=== PATIENT | female | born 2000 | race Two or more races ===

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

== ENCOUNTER → 2020-03-20 | Outpatient (CLI) | payer BC ==
--- NOTE | 2020-03-20 16:32 | RAD ---
CLINICAL HISTORY: , unsure of dates. COMPARISON: None available. TECHNIQUE: Limited transabdominal ultrasound of the uterus was performed. FINDINGS: There is a single live fetus in breech position. Cardiac activity is visualized and documented at a rate of 135 beats per minute. The placenta is posterior without placenta previa. The amniotic fluid is normal for gestational stage. 6 cm in length. Current measurements are: BPD - 4.38 cm = 19 weeks 2 days HC - 16.79 cm = 19 weeks 3 days AC - 14.88 cm =20 weeks 1 day FL - 3.12 cm = 19 weeks 5 days The gestational size based on todays measurements is 19 weeks 5 days. The estimated weight is 317+/- 47 gm. The estimated date of delivery is 08/09/2020. IMPRESSION: Single live intrauterine gestation with estimated gestational age of 19 weeks 5 days and an estimated date of delivery 08/09/2020. Electronically signed by: Kulwant Rincon MD (03/20/2020 4:29 PM) KEVIN
== END | disposition home or self-care (01) ==
LOC: US 14:32
PROVIDERS: ATTEND Family Medicine
DX: O32.1XX0 Maternal care for breech presentation, not applicable or unspecified (principal); Z3A.19 19 weeks gestation of pregnancy
CPT/HCPCS: 76805

== ENCOUNTER 2020-06-16 05:25 | Observation (INO) | payer BC ==
[2020-06-16] MEDS ORDERED: IV RINGERS,LACTATED 1000ML 1,000 ML IV SCH (05:32)
[2020-06-16 05:52] LABS: BILIRUBIN,URINE NEGATIVE (NEG); CLARITY,URINE CLEAR; COLOR,URINE YELLOW; NITRITE,URINE NEGATIVE (NEG); PROTEIN,URINE NEGATIVE (NEG-TRACE); UROBILINOGEN,URINE 0.2 mg/dL (0.2 mg/dL)
[2020-06-16 06:00] LABS: BACTERIA,URINE MODERATE /HPF (0-FEW); SQUAMOUS EPITHELIAL CELL,UR MANY /LPF
[2020-06-16 06:01] LABS: BARBITURATES NEG (NEG); BENZODIAZEPINES NEG (NEG); CANNABINOIDS NEG (NEG); COCAINE NEG (NEG); METHADONE NEG (NEG); OPIATES NEG (NEG); PHENCYCLIDINE NEG (NEG)
[2020-06-16 06:02] LABS: AMPHETAMINE/METHAMPHETAMINE NEG (NEG)
[2020-06-16 06:29] LABS: AMNIO PT POSITIVE
[2020-06-16] MEDS ORDERED: IV RINGERS,LACTATED 500ML 500 ML IV ONE (07:00)
[2020-06-16] MEDS ORDERED: AMPICILLIN SODIUM 2 GM in IV NORMAL SALINE 100ML 100 ML IV ONE (07:00)
[2020-06-16] MEDS ORDERED: BETAMET ACET&NA PHOS 30 MG/5 ML VIAL. IM ONE (07:00)
--- NOTE | 2020-06-16 08:11 | HP ---
ADMIT DATE: 06/16/2020 ADMISSION HISTORY AND PHYSICAL, DISCHARGE SUMMARY REASON FOR ADMISSION: Premature rupture of membranes. HISTORY OF PRESENT ILLNESS AND HOSPITAL COURSE: This patient is a 19-year-old / female admitted with abdominal pain and leakage of fluid to Labor and Delivery Department at 32 weeks and 2 days. She had risks of previous STD status post treatment, obstructive sleep apnea and major depression under control. She states that she had noticed some possible leakage approximately 3 days ago, but had a more significant leakage the day of admission. She had evaluation by nursing staff on Labor and Delivery, had an equivocal Nitrazine, but a positive AmniSure. Nursing reported variable decels on the strip with minimal or no contractions. At this point, recommendations for transfer to [facility] for evaluation and treatment due to need for possible level 3 nursery was done. This was accomplished transferring care to Dr. Pride. Ambulance transfer was initiated. The patient was stable. Steroids and antibiotics were given prior to transfer. Further workup will be deferred to [facility]. PAST MEDICAL HISTORY: Significant for: 1. Obesity. 2. Obstructive sleep apnea. 3. Chlamydia status post treatment in early . 4. Major depression, on Prozac, off during . The patient had due date of 08/09/2020 confirmed by 19-week 5-day sonogram. FAMILY HISTORY: Significant for mother with diabetes and polymyalgia rheumatica. SOCIAL HISTORY: The patient does not smoke or use alcohol. She lives with her mother. Father of baby is not involved in . REVIEW OF SYSTEMS: The patient was doing well and was at work when increasing leakage was noted. PHYSICAL EXAMINATION: GENERAL: This is a well-nourished, well-developed / female in no apparent distress. She is alert and oriented x 3. HEENT: Benign. CARDIAC: Regular rate and rhythm. LUNGS: Clear. ABDOMEN: Gravid with heart tones auscultated. EXTREMITIES: 2+ pulses without significant edema. NEUROLOGIC: Intact. ASSESSMENT: Premature rupture of membranes at 32 weeks 2 days. PLAN: To proceed with transfer to [facility] for definitive care and level 3 nursery accessibility. BERRY BUENO MD DR: LIZETH/vic JOB#: [id number] / [id number]
== END 2020-06-16 08:35 | disposition home or self-care (01) ==
LOC: 3 SO LND 05:25
PROVIDERS: ADMIT Family Medicine; ATTEND Family Medicine
DX: O42.913 Preterm premature rupture of membranes, unspecified as to length of time between rupture and onset of labor, third trimester (principal); O62.9 Abnormality of forces of labor, unspecified; R10.30 Lower abdominal pain, unspecified; Z3A.32 32 weeks gestation of pregnancy
CPT/HCPCS: 36415; 80307; 81001; 84112; 87086; 96365; 96372; G0378; G0379; J0290; J0702

== ENCOUNTER → 2021-09-01 | Outpatient (CLI) | payer BC ==
--- NOTE | 2021-09-01 15:12 | KCIC ---
XR EXAM OF ANKLE_RIGHT 3VIEWS, XR FOOT_RIGHT 3 VIEWS DATE: 09/01/2021 11:33 AM INDICATION: Rt foot and ankle pain medial aspect. COMPARISON: None. FINDINGS: Bones: There is no evidence of acute fracture or dislocation. Joints: The ankle mortise is congruent. No widening of the distal tibiofibular syndesmosis. Miscellaneous: None. IMPRESSION: No evidence of acute fracture. Electronically signed by: Lan Galvez MD (09/01/2021 3:09 PM) [id number]
== END ==
LOC: KCIC 11:30
PROVIDERS: ATTEND Family Medicine
DX: M79.671 Pain in right foot (principal); M25.571 Pain in right ankle and joints of right foot
CPT/HCPCS: 73610; 73630

== ENCOUNTER 2021-09-17 08:17 | Day surgery (SDC) | payer BC ==
[~2021-09-17] VITALS: Ht 165.1 cm; Wt 109.0 kg
[~2021-09-17 08:17] MED LIST changes: +HYDROmorphone 2 MG/ML VIAL IVP PRN; +LIDOCAINE 2% PF 5 ML VIAL. ONE; +MIDAZOLAM HCL/PF 2 MG/2 ML VIAL. ONE; +MORPHINE SULFATE 2 MG/ML INJ. IVP PRN; +PROCHLORPERAZINE 10 MG/2 ML VIAL. IVP PRN; +PROPOFOL 10 MG/ML (20ML) VIAL. IV ONE; +fentaNYL PF VIAL 100 MCG/2 ML VIAL IVP PRN; +fentaNYL PF VIAL 100 MCG/2 ML VIAL ONE
[2021-09-17 08:43] VITALS: BP 110/61
[2021-09-17] MEDS: IV RINGERS,LACTATED 1000ML 1,000 ML IV SCH (09:04)
[2021-09-17] MEDS ORDERED: ONDANSETRON PF 4 MG/2 ML VIAL. ONE (09:37)
[2021-09-17] MEDS ORDERED: DEXAMETHASONE SOD PHOS 4 MG/ML VIAL ONE (09:37)
[2021-09-17] MEDS ORDERED: SEVOFLURANE 61 TO 120 MINUTES. IH ONE (09:51)
[2021-09-17] MEDS: BUPIVACAINE MPF 0.5% 30 ML VIAL. ONE (09:58)
[2021-09-17] MEDS: TRIAMCINOLONE ACET/PF OPHTH 40 MG/ML VIAL. IO ONE (10:04)
[2021-09-17] MEDS ORDERED: DEXTROSE 50% 25 GM / 50ML DISP.SYRIN. IV PRN (10:30)
[2021-09-17] MEDS ORDERED: ONDANSETRON PF 4 MG/2 ML VIAL. IVP PRN (10:30)
[2021-09-17] MEDS ORDERED: POLYETHYLENE GLYCOL 3350 17 GM PACKET. PO PRN (10:30)
--- NOTE | 2021-09-17 10:31 | PDOC4 ---
OPERATIVE NOTE Date: Date: Sep 17, 2021 Pre-Op Diagnosis: Right foot soft tissue mass Post-Op Diagnosis: Same as above Procedure Performed: Right soft tissue mass excision and pathology study Surgeon: Dayday Kirkland DPM Anesthesia Type: General Blood Loss: 5 cc Specimans Obtained: Soft tissue mass, right foot for pathology Findings: Soft tissue mass, multilobulated, fluid-filled, well encapsulated overlying the dorsal second metatarsal cuneiform joint without an obvious stock. The dorsal neurovascular bundle was intact however overlying on top of the soft tissue mass. Complications: None Operative Note: Under mild sedation, patient was brought into the operating room and placed on the operating table in a supine position. A formal timeout was performed to confirm patient's identity, procedure and procedure site. Following IV antibiotics and general anesthesia, a well-padded right calf tourniquet was placed. The right lower extremity was scrubbed, prepped and draped using aseptic techniques. The right lower extremity was exsanguinated and the tourniquet was inflated at 250 mmHg. The attention was directed to the dorsal soft tissue mass overlying the second metatarsocuneiform joint. A linear incision was made over the central soft tissue mass, full-thickness. Deep tissue dissection was carried out with a combination of sharp and blunt dissection with care to protect, retract all the neurovascular bundles. At this time, a deep peroneal nerve was encountered and freed from the deep tissue fascia and then mobilized medially. The incision was carried deep to the deep fascial layer. The EDB muscle belly was elevated and freed from the underlying deep tissue structure. At this time, a multilobulated, well encapsulated soft tissue mass was visualized overlying the dorsal second metatarsal cuneiform joint. The soft tissue mass was elevated off the surrounding soft tissue with sharp and blunt dissections. The soft tissue mass was removed in total just superior facial to the periosteum layer. The soft tissue mass was passed down to the back table for pathology. Wound bed examination was free from additional soft tissue mass. The joint capsule was relatively preserved. The dorsal extensor tendons were also free gliding. The dorsal neurovascular bundle was also intact. Then the surgical site was irrigated with copious saline solution. The second tarsometatarsal joint was treated with 0.5 cc of Kenalog. At this time, tourniquet was deflated. There was no pulsating bleeding. Hemostasis was achieved with mild compression only. Adequate digital perfusion was noted. The site was closed in layers with 3-0 V icryl, 4-0 Monocryl and 4-0 nylon with care to avoid neurovascular bundles. 4 cc of quarter percent Marcaine plain was infiltrated to the surgical site for postoperative anesthesia augmentation. The surgical site was covered with Betadine soaked Adaptic, 4 x 4 gauze. The right lower extremity was then dressed with Kerlix, [place]. A surgical shoe was placed over the right foot. Patient tolerated anesthesia and procedure well and then was transferred to PACU for continuous recovery. Patient to be nonweightbearing to the right lower extremity well protected in the surgical shoe. Keep the dressing clean, dry and intact. I prescribed gabapentin and tramadol for postoperative pain management. DVT prophylaxis with upper body mobility, aspirin 81 mg daily and sustained hydration. Patient to return in 2 weeks for skin check and suture removal. DAYDAY KIRKLAND DPM Sep 17, 2021 10:31
[2021-09-17] MEDS ORDERED: GABAPENTIN 100 MG CAPSULE. PO ONE (10:45)
[2021-09-17] MEDS ORDERED: traMADol 50 MG TABLET PO ONE (10:45)
[2021-09-17] MEDS ORDERED: SENNOSIDES/DOCUSATE 8.6/50MG TABLET. PO SCH (11:00)
[2021-09-17] MEDS: oxyCODONE/APAP 5/325 1 TAB TABLET PO ONE (11:14)
[2021-09-17] MEDS: GABAPENTIN 100 MG CAPSULE. PO ONE (11:14)
[2021-09-17 11:15] VITALS: BP 133/68
[2021-09-17] MEDS: ACETAMINOPHEN 325 MG TABLET. PO ONE (11:15)
[2021-09-18] MEDS ORDERED: MAGNESIUM HYDROXIDE 2,400 MG/30 ML ORAL.SUSP. PO PRN (06:00)
[2021-09-18] MEDS ORDERED: BISACODYL 10 MG SUPP.RECT. PR PRN (16:00)
== END 2021-09-17 12:01 | disposition home or self-care (01) ==
LOC: SURG 08:17
PROVIDERS: ATTEND Podiatrist
DX: R22.41 Localized swelling, mass and lump, right lower limb (principal); M67.471 Ganglion, right ankle and foot; G47.30 Sleep apnea, unspecified; Z79.899 Other long term (current) drug therapy; Z98.890 Other specified postprocedural states
CPT/HCPCS: 81025; 88304; A4209; A4930; A6402; A6443; A6449; A6452; J0690; J1100; J2250; J2405; J2704; J3010; J3301; J3490